=== PATIENT | male | born 1980 | race Caucasian/White ===

== ENCOUNTER 2018-02-23 15:14 | Emergency (ER) | payer MEDICAID, OTHER ==
[~2018-02-23] VITALS: Ht 182.9 cm; Wt 123.7 kg
[2018-02-23] MEDS ORDERED: DEXAMETHASONE 4 MG TABLET PO ONE (16:00)
[2018-02-23] MEDS ORDERED: DEXAMETHASONE 4 MG TABLET ONE (16:13)
[2018-02-23 17:45] VITALS: BP 145/79
== END 2018-02-23 17:50 | disposition home or self-care (01) ==
LOC: ED 17:12
DX: H66.003 Acute suppurative otitis media without spontaneous rupture of ear drum, bilateral (principal); B34.9 Viral infection, unspecified
CPT/HCPCS: 71045; 99283

== ENCOUNTER 2018-06-30 16:19 | Inpatient (IN) | payer OTHER ==
[~2018-06-30] VITALS: Ht 182.9 cm; Wt 99.5 kg
[~2018-06-30 16:19] MED LIST: OMNIPAQUE 350 MG/ML, 100ML BOTTLE ONE
[2018-06-30 17:04] LABS: BASOPHILS # (AUTO) 0.04 x10^3/uL (0-0.1); BASOPHILS % (AUTO) 0 % (0-1); EOSINOPHILS # (AUTO) 0.02 x10^3/uL (0-0.4); EOSINOPHILS % (AUTO) 0 % (1-7); LYMPHOCYTES # (AUTO) 1.55 x10^3/uL (1-3.4); LYMPHOCYTES % (AUTO) 9 % (22-44); MD NO; MEAN CORPUSCULAR HEMOGLOBIN 28.7 pg (27.5-34.5); MEAN CORPUSCULAR HGB CONC 33.6 g/dL (33.2-36.2); MEAN CORPUSCULAR VOLUME 85.4 fL (81-97); MEAN PLATELET VOLUME 8.7 fL (7.4-10.4); MONOCYTES % (AUTO) 3 % (2-9); NEUTROPHILS # (AUTO) 15.52 x10^3/uL (1.8-6.8); NEUTROPHILS % (AUTO) 88 % (42-75); PLATELET COUNT 338 x10^3/uL (130-400); RED BLOOD COUNT 4.79 x10^6/uL (4.38-5.82); RED CELL DISTRIBUTION WIDTH 14.9 % (9.4-14.8)
[2018-06-30 17:14] LABS: ALANINE AMINOTRANSFERASE 19 U/L (12-78); ALBUMIN 2.4 g/dL (3.4-5.0); ANION GAP 10 mmol/L (5-15); CALCIUM 9.5 mg/dL (8.5-10.1); CHLORIDE 96 mmol/L (98-107); CREATININE 0.79 mg/dL (0.7-1.3)
[2018-06-30 17:19] LABS: ALKALINE PHOSPHATASE 117 U/L (45-117); BILIRUBIN,TOTAL 0.3 mg/dL (0.2-1.0); TOTAL PROTEIN 8.6 g/dL (6.4-8.2); TROPONIN I < 0.015 ng/mL (0.000-0.045)
--- NOTE | 2018-06-30 17:27 | NUR ---
PT PRESENTS TO ED WITH C/O GENRERALIZED ABD PAIN WITH N/V X 10 DAYS, NOW RADIATING TO LEFT CHEST WITH INTERMITTENT THROBBING PAIN. PT REPORTS 31 LB WEIGHT LOSS SINCE ONSET 10 DAYS AGO. PT A&O, RESPS EVEN AND UNLABORED, SHALLOW AT RATE 30. ALL MONITORS IN PLACE. ALL RESULTS BACK. AWAITING FURTHER ORDERS AT THIS TIME.
[2018-06-30] MEDS ORDERED: DIPHENHYDRAMINE 50 MG/ML, 1ML ONE (17:54)
[2018-06-30] MEDS ORDERED: HALOPERIDOL 5 MG/ML ONE (17:54)
[2018-06-30] MEDS ORDERED: DIPHENHYDRAMINE 50 MG/ML, 1ML IVPush ONE (18:00)
[2018-06-30] MEDS ORDERED: HALOPERIDOL 5 MG/ML IM PRN (18:00)
--- NOTE | 2018-06-30 18:10 | NUR ---
pt medicated per emar, tolerated well. pt educated regarding poc. awaiting ct and dispo.
[2018-06-30] MEDS ORDERED: SODIUM CHLORIDE 0.9% 1,000ML IVBOLUS ONE (18:30)
--- NOTE | 2018-06-30 18:45 | NUR ---
pt awake, alert and oriented. resps even and unlabored. pt states abd/chest pain unchanged and requests pain medication. EDMD Rios notified.
[2018-06-30] MEDS ORDERED: MORPHINE SULFATE 4 MG/ML, 1ML IVPush PRN (19:00)
--- NOTE | 2018-06-30 19:14 | NUR ---
PT IN RADIOLOGY FOR ESOPHAGRAM.
[2018-06-30] MEDS ORDERED: MORPHINE SULFATE 4 MG/ML, 1ML ONE (19:22)
[2018-06-30 19:28] LABS: INTERNATIONAL NORMALIZED RATIO 1.14 (0.93-1.1); PROTHROMBIN TIME 11.9 Seconds (9.6-11.5)
--- NOTE | 2018-06-30 19:28 | NUR ---
MD PINEDA AT BEDSIDE TO ADMIT PT, PT INFORMED BY AMILCAR BARNES REGARDING RESULTS AND POC. PT MEDICATED PER EMAR, TOLERATED WELL. AT BEDSIDE.
--- NOTE | 2018-06-30 19:30 | NUR ---
verbal order received from AMILCAR Rios for ns at 250ml/hr.
--- NOTE | 2018-06-30 19:44 | NUR ---
REPORT GIVEN TO SUKHDEEP WAHL. PT'S SPO2 MAINTAINED >90% ON ROOM AIR PRIOR TO TRANSPORT, HOWEVER PT PLACED ON 2L OXYGEN VIA NC FOR TRANSPORT D/T RECENT MORPHINE ADMIN. PT A&O, RESPS EVEN AND UNLABORED. JERRELLN AT TIME OF TRANSPORT.
[2018-06-30 19:50] VITALS: BP 157/88
[2018-06-30] MEDS ORDERED: SODIUM CHLORIDE 0.9% 1,000 ML IV SCH ×3 (20:00→20:09)
[2018-06-30 20:15] VITALS: BP 157/88
[2018-06-30] MEDS ORDERED: ONDANSETRON 2MG/ML, 2ML IVPush PRN (20:30)
[2018-06-30 21:25] LABS: AMPHETAMINE SCREEN, URINE Negative (Negative); BARBITURATE SCREEN, URINE Negative (Negative); BENZODIAZEPINE SCREEN, URINE Negative (Negative); CANNABINOID SCREEN, URINE Positive (Negative); COCAINE SCREEN, URINE Negative (Negative); METHADONE SCREEN, URINE Negative (Negative); OPIATE SCREEN, URINE Positive (Negative)
[2018-06-30] MEDS: SODIUM CHLORIDE 0.9% 1,000 ML IV SCH (22:20)
[2018-06-30] MEDS: morphine SULFATE 10 MG/ML, 1ML IVPush PRN (22:37)
[2018-07-01 00:54] VITALS: BP 151/94
[2018-07-01] MEDS: SODIUM CHLORIDE 0.9% 1,000 ML IV SCH ×3 (04:59→21:51)
[2018-07-01] MEDS: morphine SULFATE 10 MG/ML, 1ML IVPush PRN ×4 (04:59→21:51)
[2018-07-01 05:41] LABS: MEAN CORPUSCULAR HEMOGLOBIN 29.1 pg (27.5-34.5); MEAN CORPUSCULAR HGB CONC 33.7 g/dL (33.2-36.2); MEAN CORPUSCULAR VOLUME 86.5 fL (81-97); PLATELET COUNT 312 x10^3/uL (130-400); RED BLOOD COUNT 4.33 x10^6/uL (4.38-5.82); RED CELL DISTRIBUTION WIDTH 14.9 % (9.4-14.8)
[2018-07-01 05:57] LABS: CHLORIDE 102 mmol/L (98-107)
[2018-07-01 06:11] LABS: ANION GAP 13 mmol/L (5-15); CALCIUM 8.4 mg/dL (8.5-10.1); CREATININE 0.57 mg/dL (0.7-1.3)
[2018-07-01 06:22] LABS: MD YES
[2018-07-01 06:25] LABS: BAND#(MANUAL) 2.55 x10^3/uL; BANDS%(MANUAL) 15 % (0-7); LYMPHS% (MANUAL) 10 % (22-44); METAMYELOCYTES# (MANUAL) 0.17 x10^3/uL (0-0); METAMYELOCYTES% (MANUAL) 1 % (0-1); MONOS#(MANUAL) 0.85 x10^3/uL (0.3-2.7); MONOS% (MANUAL) 5 % (2-9); MYELOCYTES# (MANUAL) 0.17 x10^3/uL (0-0); MYELOCYTES% (MANUAL) 1 % (0-0); SEG#(MANUAL) 11.56 x10^3/uL (1.8-6.8); SEGS% (MANUAL) 68 % (42-75)
[2018-07-01 06:32] LABS: <PLATELET ESTIMATE> ADEQUATE; <PLT MORPHOLOGY> NORMAL PLT MORPH; POLYCHROMASIA 1+
[2018-07-01 07:15] VITALS: BP 132/82
[2018-07-01] MEDS ORDERED: D5%-0.45% NACL 1,000 ML IV SCH (09:00)
[2018-07-01 12:45] LABS: ANION GAP 8 mmol/L (5-15); CALCIUM 8.2 mg/dL (8.5-10.1); CHLORIDE 102 mmol/L (98-107); CREATININE 0.67 mg/dL (0.7-1.3)
[2018-07-01 13:15] VITALS: BP 141/77
[2018-07-01] MEDS ORDERED: ACETAMINOPHEN 1,000 MG/100 ML IV IVPB PRN (14:00)
[2018-07-01] MEDS ORDERED: ACETAMINOPHEN 325 MG TABLET PO PRN (14:00)
[2018-07-01] MEDS ORDERED: VANCOMYCIN PER PHARMACY MC PRN (14:00)
[2018-07-01] MEDS ORDERED: PHARMACOKINETIC MONITORING MC PRN (14:30)
[2018-07-01] MEDS ORDERED: PHARMACOKINETIC CONSULTATION MC ONE (14:30)
[2018-07-01] MEDS: PIPERACILLIN/TAZO/PMX 3.375GM 50 ML IV SCH ×2 (14:39→21:36)
[2018-07-01 15:24] VITALS: BP 117/73
[2018-07-01 16:55] LABS: CHOL/HDL RATIO 6.9; LDL/HDL RATIO 4.1 (0.5-3.0)
[2018-07-01 17:32] LABS: ALBUMIN 1.8 g/dL (3.4-5.0); BILIRUBIN, DIRECT 0.1 mg/dL (0.1-0.2)
[2018-07-01 17:34] LABS: BILIRUBIN,INDIRECT 0.3 mg/dL (0.0-2.0); BILIRUBIN,TOTAL 0.4 mg/dL (0.2-1.0); TOTAL PROTEIN 6.8 g/dL (6.4-8.2)
[2018-07-01 17:37] LABS: HEMOGLOBIN A1C 12.2 % (4.2-6.3)
[2018-07-01] MEDS: INSULIN LISPRO 100 UNITS/ML, PEN SQ-INSULIN SCH ×2 (17:43→21:51)
[2018-07-01 21:40] VITALS: BP 121/77
[2018-07-02 00:39] VITALS: BP 123/77
[2018-07-02] MEDS: PIPERACILLIN/TAZO/PMX 3.375GM 50 ML IV SCH ×4 (03:15→21:14)
[2018-07-02] MEDS: SODIUM CHLORIDE 0.9% 1,000 ML IV SCH ×2 (05:16→12:20)
[2018-07-02] MEDS: morphine SULFATE 10 MG/ML, 1ML IVPush PRN (05:22)
[2018-07-02 05:43] LABS: CHOL/HDL RATIO 7.5; LDL/HDL RATIO 4.3 (0.5-3.0)
[2018-07-02 05:44] LABS: BASOPHILS # (AUTO) 0.03 x10^3/uL (0-0.1); BASOPHILS % (AUTO) 0 % (0-1); EOSINOPHILS # (AUTO) 0.04 x10^3/uL (0-0.4); EOSINOPHILS % (AUTO) 0 % (1-7); LYMPHOCYTES # (AUTO) 1.91 x10^3/uL (1-3.4); LYMPHOCYTES % (AUTO) 15 % (22-44); MD NO; MEAN CORPUSCULAR HEMOGLOBIN 29.1 pg (27.5-34.5); MEAN CORPUSCULAR HGB CONC 33.6 g/dL (33.2-36.2); MEAN CORPUSCULAR VOLUME 86.7 fL (81-97); MEAN PLATELET VOLUME 8.3 fL (7.4-10.4); MONOCYTES # (AUTO) 1.09 x10^3/uL (0.2-0.8); MONOCYTES % (AUTO) 9 % (2-9); NEUTROPHILS # (AUTO) 9.59 x10^3/uL (1.8-6.8); NEUTROPHILS % (AUTO) 76 % (42-75); PLATELET COUNT 341 x10^3/uL (130-400); RED BLOOD COUNT 3.95 x10^6/uL (4.38-5.82); RED CELL DISTRIBUTION WIDTH 14.6 % (9.4-14.8)
[2018-07-02] MEDS: INSULIN LISPRO 100 UNITS/ML, PEN SQ-INSULIN SCH ×4 (07:42→21:44)
[2018-07-02 08:04] VITALS: BP 117/75
[2018-07-02] MEDS ORDERED: MORPHINE SULFATE 4 MG/ML, 1ML IVPush PRN (11:00)
[2018-07-02] MEDS ORDERED: VANCOMYCIN 2,000 MG in SODIUM CHLORIDE 0.9% 500 ML IV SCH (11:00)
[2018-07-02] MEDS: HYDROcodone/APAP 5/325 TABLET PO PRN ×2 (11:18→19:49)
[2018-07-02] MEDS: ENOXAPARIN 40 MG/0.4 ML SQ SCH (11:18)
[2018-07-02 13:13] VITALS: BP 123/80
[2018-07-02] MEDS ORDERED: SODIUM CHLORIDE 0.9% 1,000 ML IV SCH (16:00)
[2018-07-02 19:29] VITALS: BP 111/72
[2018-07-02] MEDS: INSULIN GLARGINE 100 UNITS/ML, PEN SQ-INSULIN SCH (21:44)
[2018-07-02] MEDS ORDERED: DIPHENHYDRAMINE 25 MG CAPSULE PO PRN (22:30)
[2018-07-03 02:44] VITALS: BP 138/101
[2018-07-03] MEDS: HYDROcodone/APAP 5/325 TABLET PO PRN ×2 (03:50→20:38)
[2018-07-03] MEDS: PIPERACILLIN/TAZO/PMX 3.375GM 50 ML IV SCH ×4 (03:50→20:34)
[2018-07-03 05:23] VITALS: BP 123/80
[2018-07-03 06:39] LABS: ALBUMIN 1.8 g/dL (3.4-5.0); ANION GAP 7 mmol/L (5-15); BASOPHILS # (AUTO) 0.04 x10^3/uL (0-0.1); BASOPHILS % (AUTO) 1 % (0-1); CALCIUM 8.1 mg/dL (8.5-10.1); CHLORIDE 106 mmol/L (98-107); EOSINOPHILS # (AUTO) 0.08 x10^3/uL (0-0.4); EOSINOPHILS % (AUTO) 1 % (1-7); LYMPHOCYTES # (AUTO) 1.66 x10^3/uL (1-3.4); LYMPHOCYTES % (AUTO) 22 % (22-44); MD NO; MEAN CORPUSCULAR HEMOGLOBIN 28.5 pg (27.5-34.5); MEAN CORPUSCULAR HGB CONC 33.3 g/dL (33.2-36.2); MEAN CORPUSCULAR VOLUME 85.7 fL (81-97); MEAN PLATELET VOLUME 8.1 fL (7.4-10.4); MONOCYTES # (AUTO) 0.57 x10^3/uL (0.2-0.8); MONOCYTES % (AUTO) 8 % (2-9); NEUTROPHILS # (AUTO) 5.29 x10^3/uL (1.8-6.8); NEUTROPHILS % (AUTO) 69 % (42-75); PLATELET COUNT 367 x10^3/uL (130-400); RED BLOOD COUNT 3.99 x10^6/uL (4.38-5.82); RED CELL DISTRIBUTION WIDTH 14.6 % (9.4-14.8)
[2018-07-03 06:42] LABS: ALANINE AMINOTRANSFERASE 48 U/L (12-78); ALKALINE PHOSPHATASE 82 U/L (45-117); BILIRUBIN,TOTAL 0.3 mg/dL (0.2-1.0); CREATININE 0.57 mg/dL (0.7-1.3); TOTAL PROTEIN 6.4 g/dL (6.4-8.2)
[2018-07-03] MEDS: INSULIN LISPRO 100 UNITS/ML, PEN SQ-INSULIN SCH ×4 (08:48→20:35)
[2018-07-03 08:50] VITALS: BP 125/77
[2018-07-03] MEDS: ENOXAPARIN 40 MG/0.4 ML SQ SCH (11:35)
[2018-07-03 15:27] VITALS: BP 130/80
[2018-07-03 19:06] VITALS: BP 119/83
[2018-07-03] MEDS: SODIUM CHLORIDE 0.9% 1,000 ML IV SCH (20:34)
[2018-07-03] MEDS: INSULIN GLARGINE 100 UNITS/ML, PEN SQ-INSULIN SCH (20:35)
[2018-07-04 01:35] VITALS: BP 138/83
[2018-07-04] MEDS: SODIUM CHLORIDE 0.9% 1,000 ML IV SCH (02:38)
[2018-07-04] MEDS: PIPERACILLIN/TAZO/PMX 3.375GM 50 ML IV SCH ×2 (02:38→10:25)
[2018-07-04 06:29] LABS: BASOPHILS # (AUTO) 0.04 x10^3/uL (0-0.1); BASOPHILS % (AUTO) 1 % (0-1); EOSINOPHILS # (AUTO) 0.09 x10^3/uL (0-0.4); EOSINOPHILS % (AUTO) 1 % (1-7); LYMPHOCYTES # (AUTO) 1.87 x10^3/uL (1-3.4); LYMPHOCYTES % (AUTO) 26 % (22-44); MD NO; MEAN CORPUSCULAR HEMOGLOBIN 28.5 pg (27.5-34.5); MEAN CORPUSCULAR HGB CONC 33.1 g/dL (33.2-36.2); MEAN CORPUSCULAR VOLUME 85.9 fL (81-97); MEAN PLATELET VOLUME 8.3 fL (7.4-10.4); MONOCYTES # (AUTO) 0.54 x10^3/uL (0.2-0.8); MONOCYTES % (AUTO) 7 % (2-9); NEUTROPHILS # (AUTO) 4.76 x10^3/uL (1.8-6.8); NEUTROPHILS % (AUTO) 65 % (42-75); PLATELET COUNT 421 x10^3/uL (130-400); RED BLOOD COUNT 4.01 x10^6/uL (4.38-5.82); RED CELL DISTRIBUTION WIDTH 14.7 % (9.4-14.8)
[2018-07-04 06:41] LABS: ANION GAP 7 mmol/L (5-15); CALCIUM 8.3 mg/dL (8.5-10.1); CHLORIDE 110 mmol/L (98-107)
[2018-07-04 06:42] LABS: CREATININE 0.52 mg/dL (0.7-1.3)
[2018-07-04 07:37] VITALS: BP 126/79
[2018-07-04] MEDS: INSULIN LISPRO 100 UNITS/ML, PEN SQ-INSULIN SCH ×3 (08:13→16:00)
[2018-07-04] MEDS: HYDROcodone/APAP 5/325 TABLET PO PRN (08:29)
[2018-07-04] MEDS: ENOXAPARIN 40 MG/0.4 ML SQ SCH (11:00)
[2018-07-04] MEDS ORDERED: AMOXICILLIN/CLAV 875-125MG TABLET PO SCH (11:00)
[2018-07-04 14:00] VITALS: BP 122/79
[2018-07-04] MEDS ORDERED: AMOX1TAB12 PO (16:07)
[2018-07-04] MEDS ORDERED: INSU100I11 SQ-INSULIN (16:07)
[2018-07-04] MEDS ORDERED: INSU100I13 SQ-INSULIN (16:07)
== END 2018-07-04 18:10 | disposition home or self-care (01) | DRG 871 ==
LOC: ED 18:37 → EDIP 19:06 → 3NE 19:47 → 4EST 07-01 16:20
PROVIDERS: ADMIT Internal Medicine; ATTEND Internal Medicine
DX: A41.9 Sepsis, unspecified organism (principal); K85.90 Acute pancreatitis without necrosis or infection, unspecified; E87.1 Hypo-osmolality and hyponatremia; K86.3 Pseudocyst of pancreas; D63.8 Anemia in other chronic diseases classified elsewhere; D73.5 Infarction of spleen; E11.65 Type 2 diabetes mellitus with hyperglycemia; E86.0 Dehydration; E66.01 Morbid (severe) obesity due to excess calories; F12.90 Cannabis use, unspecified, uncomplicated; L30.9 Dermatitis, unspecified; Z79.4 Long term (current) use of insulin; Z83.3 Family history of diabetes mellitus; Z79.899 Other long term (current) drug therapy; Z68.29 Body mass index [BMI] 29.0-29.9, adult
CPT/HCPCS: 36415; 71046; 74177; 74181; 74220; 80048; 80053; 80061; 80076; 80307; 82150; 82962; 83036; 83605; 83690; 84145; 84484; 85025; 85610; 86301; 86677; 87040; 93005; G0378; J1650; J2543; J3370; Q9967; J1200; J1630; J1815; J2270; J7030; J7040; Q0163

== ENCOUNTER 2019-04-30 14:45 | Emergency (ER) | payer MEDICAID ==
[~2019-04-30] VITALS: Ht 182.9 cm; Wt 124.6 kg
[~2019-04-30 14:45] MED LIST changes: +AMOX1TAB12 PO; +INSU100I11 SQ-INSULIN; +INSU100I13 SQ-INSULIN; -OMNIPAQUE 350 MG/ML, 100ML BOTTLE ONE
--- NOTE | 2019-04-30 18:51 | NUR ---
pt to room from lobby
--- NOTE | 2019-04-30 19:01 | NUR ---
PT ATTACHED TO ALL MONITORING EQUIPMENT ALL VITALS STABLE. DR. RIGGINS AT BEDSIDE EVALUATING PT
[2019-04-30 19:30] LABS: BASOPHILS # (AUTO) 0.02 x10^3/uL (0-0.1); BASOPHILS % (AUTO) 0 % (0-1); EOSINOPHILS # (AUTO) 0.14 x10^3/uL (0-0.4); EOSINOPHILS % (AUTO) 2 % (1-7); LYMPHOCYTES # (AUTO) 3.45 x10^3/uL (1-3.4); LYMPHOCYTES % (AUTO) 41 % (22-44); MD NO; MEAN CORPUSCULAR HEMOGLOBIN 30.5 pg (27.5-34.5); MEAN CORPUSCULAR HGB CONC 35.4 g/dL (33.2-36.2); MEAN CORPUSCULAR VOLUME 86.1 fL (81-97); MEAN PLATELET VOLUME 7.6 fL (7.4-10.4); MONOCYTES # (AUTO) 0.37 x10^3/uL (0.2-0.8); MONOCYTES % (AUTO) 4 % (2-9); NEUTROPHILS # (AUTO) 4.43 x10^3/uL (1.8-6.8); NEUTROPHILS % (AUTO) 53 % (42-75); PLATELET COUNT 244 x10^3/uL (130-400); RED BLOOD COUNT 5.26 x10^6/uL (4.38-5.82); RED CELL DISTRIBUTION WIDTH 13.9 % (9.4-14.8)
--- NOTE | 2019-04-30 19:32 | NUR ---
PT TO XRAY
[2019-04-30 19:41] LABS: ALBUMIN 3.9 g/dL (3.4-5.0); ANION GAP 6 mmol/L (5-15); CALCIUM 8.6 mg/dL (8.5-10.1); CHLORIDE 101 mmol/L (98-107); CREATININE 0.69 mg/dL (0.7-1.3)
[2019-04-30 19:50] LABS: ALKALINE PHOSPHATASE 100 U/L (45-117); BILIRUBIN,TOTAL 0.8 mg/dL (0.2-1.0); TOTAL PROTEIN 7.5 g/dL (6.4-8.2)
--- NOTE | 2019-04-30 19:58 | NUR ---
PT TO CT
[2019-04-30 20:11] LABS: ALANINE AMINOTRANSFERASE 35 U/L (12-78)
[2019-04-30 20:26] VITALS: BP 138/83
--- NOTE | 2019-04-30 20:27 | NUR ---
PT RESTING ON JERRELL NGUYEN NOTED. FAM[facility] AT [facility]. AWAITING LABS, WILL CONTINUE TO MONTIOR. CALL LIGHT WITHIN REACH.
[2019-04-30] MEDS ORDERED: KETOROLAC 30 MG/1 ML ONE (20:57)
[2019-04-30] MEDS ORDERED: KETOROLAC 30 MG/1 ML IM ONE (21:00)
--- NOTE | 2019-04-30 21:04 | NUR ---
PT MEDICATED PER EMAR, 5 RIGHTS ADDRESSED
--- NOTE | 2019-04-30 21:21 | NUR ---
Patient/Caregiver given discharge instructions and they have confirmed that they understand the instructions. Patient ambulatory with steady gait.
== END 2019-04-30 21:23 | disposition home or self-care (01) ==
LOC: ED 21:15
DX: R20.2 Paresthesia of skin (principal); R21 Rash and other nonspecific skin eruption; M25.531 Pain in right wrist; R51 Headache; E11.9 Type 2 diabetes mellitus without complications
CPT/HCPCS: 36415; 70450; 72050; 73130; 80053; 83605; 85025; 87040; 96372; 99285; J1885

== ENCOUNTER 2019-08-29 14:42 | Emergency (ER) | payer MEDICAID ==
[~2019-08-29] VITALS: Ht 182.9 cm; Wt 127.3 kg
[2019-08-29 16:26] VITALS: BP 119/67
--- NOTE | 2019-08-29 16:27 | NUR ---
PT TO ROOM WITH STRONG, STEADY, INDEPENDENT GAIT. URINE SAMPLE PROVIDED AND SENT. DENIES ANY NEEDS AT THIS TIME, CALL LIGHT IN REACH.
[2019-08-29 18:15] LABS: BASOPHILS # (AUTO) 0.03 x10^3/uL (0-0.1); BASOPHILS % (AUTO) 0 % (0-1); EOSINOPHILS # (AUTO) 0.09 x10^3/uL (0-0.4); EOSINOPHILS % (AUTO) 1 % (1-7); LYMPHOCYTES # (AUTO) 3.21 x10^3/uL (1-3.4); LYMPHOCYTES % (AUTO) 37 % (22-44); MD NO; MEAN CORPUSCULAR HEMOGLOBIN 30.4 pg (27.5-34.5); MEAN CORPUSCULAR HGB CONC 34.3 g/dL (33.2-36.2); MEAN CORPUSCULAR VOLUME 88.6 fL (81-97); MEAN PLATELET VOLUME 8.1 fL (7.4-10.4); MONOCYTES # (AUTO) 0.47 x10^3/uL (0.2-0.8); MONOCYTES % (AUTO) 5 % (2-9); NEUTROPHILS # (AUTO) 4.88 x10^3/uL (1.8-6.8); NEUTROPHILS % (AUTO) 56 % (42-75); PLATELET COUNT 285 x10^3/uL (130-400); RED CELL DISTRIBUTION WIDTH 13.5 % (9.4-14.8)
[2019-08-29 18:24] LABS: ALBUMIN 4.2 g/dL (3.4-5.0); ANION GAP 9 mmol/L (5-15); CHLORIDE 105 mmol/L (98-107)
[2019-08-29 18:27] LABS: ALKALINE PHOSPHATASE 106 U/L (45-117); BILIRUBIN,TOTAL 0.5 mg/dL (0.2-1.0); CREATININE 0.83 mg/dL (0.7-1.3); TOTAL PROTEIN 7.7 g/dL (6.4-8.2)
[2019-08-29 18:29] LABS: MICROSCOPIC NOT IND
[2019-08-29 18:30] LABS: ALANINE AMINOTRANSFERASE 33 U/L (12-78)
[2019-08-29] MEDS ORDERED: MAALOX/HYOSCYAMINE/LIDOCAINE 45 ML BTL PO ONE (19:00)
[2019-08-29] MEDS ORDERED: MAALOX/HYOSCYAMINE/LIDOCAINE 45 ML BTL ONE (19:05)
[2019-08-29] MEDS ORDERED: SODIUM CHLORIDE FLUSH 10ML SYR IVF ONE (19:30)
[2019-08-29] MEDS ORDERED: MORPHINE SULFATE 4 MG/ML, 1ML IVPush PRN (19:30)
[2019-08-29] MEDS ORDERED: ONDANSETRON 2MG/ML, 2ML IVPush ONE (19:30)
[2019-08-29] MEDS ORDERED: OMNIPAQUE 350 MG/ML, 100ML BOTTLE ONE (20:40)
--- NOTE | 2019-08-29 20:43 | NUR ---
PT RETURNED FROM CT AT THIS TIME. DENIES ANY NEEDS, CALL LIGHT IN REACH.
== END 2019-08-29 21:30 | disposition home or self-care (01) ==
LOC: ED 18:29
DX: K59.00 Constipation, unspecified (principal); R10.13 Epigastric pain; R10.12 Left upper quadrant pain; E11.9 Type 2 diabetes mellitus without complications
CPT/HCPCS: 36415; 74177; 80053; 81003; 83690; 85025; 99285; Q9967